=== PATIENT | female | born 1945 | race Caucasian/White ===

== ENCOUNTER 2020-10-04 15:11 | Inpatient (IN) ==
[2020-10-04] MEDS ORDERED: 0.9 % Sodium Chloride 1,000 ML IVC ONE (15:29)
[2020-10-04] MEDS ORDERED: Morphine Sulfate 2 MG/ML SYRINGE IVP ONE (15:56)
[2020-10-04] MEDS ORDERED: Ondansetron 4 MG/2 ML VIAL IVP ONE (15:57)
[2020-10-04 16:09] LABS: BUN/Creatinine Ratio 24 (6-26); Blood Urea Nitrogen 23 mg/dL (8-23); Calcium 9.6 mg/dL (8.6-10.3); Carbon Dioxide 28 mEq/L (23-29); Chloride 100 mEq/L (98-107); Glucose 104 mg/dL (70-105); Osmolality,Calculated 292 (280-300); Potassium 3.9 mEq/L (3.5-5.1); Sodium 139 mEq/L (136-145); Troponin I < 0.03 ng/mL (< 0.04); eGFR For African Americans > 60 (> 60); eGFR For Non-African Americans 57 (> 60)
[2020-10-04 16:16] LABS: Basophils # 0.1 K/mcL (0.0-0.2); Basophils % 0.5 %; Eosinophils # 0.5 K/mcL (0.0-0.6); Eosinophils % 2.7 %; Hematocrit 37.3 % (35.3-44.9); Hemoglobin 11.4 g/dL (11.5-15.4); Immature Granulocytes % 0.8 % (0-4); Lymphocytes # 3.2 K/mcL (0.6-4.6); Lymphocytes % 19.1 %; Mean Corpuscular HGB Conc 30.6 g/dL (31.6-35.5); Mean Corpuscular Volume 94.9 fL (83.0-100.0); Mean Platelet Volume 11.1 fL (9.4-12.4); Monocytes # 1.6 K/mcL (0.0-1.3); Monocytes % 9.5 %; Neutrophils # 11.4 K/mcL (1.6-8.9); Platelet Count 326 K/mcL (140-400); Red Blood Count 3.93 M/mcL (3.82-4.97); Segmented Neutrophils % 67.4 %; White Blood Count 16.9 K/mcL (4.3-11.1)
[2020-10-04] MEDS ORDERED: Morphine Sulfate 2 MG/ML SYRINGE IVP PRN (17:54)
[2020-10-04] MEDS ORDERED: Perflutren Lipid Microsphere 1.3 ML in 0.9 % Sodium Chloride 8.7 ML IVP PRN (18:24)
[2020-10-04] MEDS ORDERED: tiZANidine 4 MG TABLET PO ONE (19:13)
[2020-10-04] MEDS ORDERED: Melatonin 3 MG TABLET PO PRN (19:47)
[2020-10-04] MEDS ORDERED: Naloxone 0.4 MG/ML INJ IVP PRN (19:47)
[2020-10-04] MEDS ORDERED: Prochlorperazine 10 MG/2 ML VIAL IVP PRN (19:55)
[2020-10-04] MEDS ORDERED: 0.9 % Sodium Chloride 1,000 ML IVC SCH (20:00)
[2020-10-04] MEDS ORDERED: Acetaminophen IV 1,000 MG/100 ML BAG IVPB ONE (20:22)
[2020-10-04] MEDS: *HR* HYDROmorphone (PF) 1 MG/ML SYRINGE IVP PRN (21:01)
[2020-10-04] MEDS: Nicotine 14 MG PATCH.TD24 TD SCH (21:14)
[2020-10-04] MEDS: Famotidine 20 MG/2 ML VIAL IVP SCH (21:14)
[2020-10-04] MEDS: Latanoprost 2.5 ML BOTTLE RIGHT EYE SCH (21:15)
[2020-10-05] MEDS: *HR* HYDROmorphone (PF) 1 MG/ML SYRINGE IVP PRN (05:22)
[2020-10-05 05:23] LABS: Hematocrit 32.9 % (35.3-44.9); Mean Corpuscular HGB Conc 30.4 g/dL (31.6-35.5); Mean Corpuscular Hemoglobin 29.1 pg (28.0-33.3); Mean Corpuscular Volume 95.6 fL (83.0-100.0); Mean Platelet Volume 11.2 fL (9.4-12.4); Platelet Count 276 K/mcL (140-400); Red Blood Count 3.44 M/mcL (3.82-4.97); Red Cell Distribution Width 14.2 % (11.5-14.5); White Blood Count 12.5 K/mcL (4.3-11.1)
[2020-10-05] MEDS: Famotidine 20 MG/2 ML VIAL IVP SCH ×2 (05:24→18:00)
[2020-10-05 05:30] LABS: INR 1.3; Prothrombin Time 14.7 Seconds (9.4-12.1)
[2020-10-05 06:11] LABS: % Iron Saturation 14 % (15-50); BUN/Creatinine Ratio 23 (6-26); Blood Urea Nitrogen 18 mg/dL (8-23); Calcium 8.5 mg/dL (8.6-10.3); Carbon Dioxide 26 mEq/L (23-29); Chloride 104 mEq/L (98-107); Chol/HDL Ratio 2.5 (0-4.9); Cholesterol 78 mg/dL (< 200); Glucose 86 mg/dL (70-105); HDL Cholesterol 31 mg/dL (40-59); Iron 31 mcg/dL (50-170); LDL Cholesterol,Calculated 25 mg/dL (< 100); Magnesium 1.9 mg/dL (1.6-2.6); Osmolality,Calculated 291 (280-300); Potassium 3.7 mEq/L (3.5-5.1); Sodium 140 mEq/L (136-145); Transferrin 159 mg/dL (203-362); Triglycerides 111 mg/dL (< 150); eGFR For African Americans > 60 (> 60); eGFR For Non-African Americans > 60 (> 60)
[2020-10-05 06:14] LABS: Ferritin 509 ng/mL (10-120)
[2020-10-05] MEDS: Nicotine 14 MG PATCH.TD24 TD SCH (10:24)
[2020-10-05] MEDS ORDERED: *HR* Propofol 200 MG/20 ML VIAL IVP ONE (11:45)
[2020-10-05] MEDS ORDERED: Dexamethasone 4 MG/ML VIAL ONE (11:45)
[2020-10-05] MEDS ORDERED: Lidocaine HCL 4 ML Topical Solution (Laryng-O-Jet Kit Sterile Pak) TP ONE (11:45)
[2020-10-05] MEDS ORDERED: *HR* FentaNYL (PF) 100 MCG/2 ML VIAL ONE (11:45)
[2020-10-05] MEDS ORDERED: Lidocaine -MPF 2% 2 ML VIAL ONE (11:45)
[2020-10-05] MEDS ORDERED: Ondansetron 4 MG/2 ML VIAL ONE (11:45)
[2020-10-05 12:01] LABS: Bacteria,Urine Few per hpf (None-Few); Bilirubin,Urine Negative (Negative); Blood,Urine Negative (Negative); Clarity,Urine Clear (Clear); Color,Urine Light-Yellow (Yellow); Glucose,Urine (UA) Normal (Normal); Hyaline Casts,Urine Few per lpf (None Seen); Ketones,Urine Negative (Negative); Leukocyte Esterase,Urine Moderate (Negative); Mucus,Urine Few per lpf (None-Few); Nitrite,Urine Positive (Negative); Protein,Urine Trace mg/dL (Neg-Trace); RBC,Urine 0-3 per hpf (0-3); Specific Gravity,Urine 1.017 (1.010-1.025); Squamous Epithelial Cell,Urine Few per hpf (None-Few); Urobilinogen,Urine Normal (Normal); WBC,Urine 30-50 per hpf (0-3)
[2020-10-05 12:09] LABS: Estimated Average Glucose 114 mg/dl; Hemoglobin A1C 5.6 %
[2020-10-05] MEDS ORDERED: CeFAZolin Syr 2,000MG/20 ML 2,000 MG/20 ML SYRINGE IVPB ONE (12:14)
[2020-10-05] MEDS ORDERED: TOTAL JOINT MIXTURE (100ML) INTRAART ONE (12:30)
[2020-10-05] MEDS ORDERED: Povidone-Iodine 45 ML, Sodium Chloride IRRigation 1,000 ML IR ONE (12:30)
[2020-10-05] MEDS ORDERED: EPHEDrine 50 MG/ML VIAL ONE (13:04)
[2020-10-05] MEDS ORDERED: *HR* Rocuronium Bromide 50 MG/5 ML VIAL ONE ×2 (13:57→14:00)
[2020-10-05] MEDS ORDERED: Tranexamic Acid 1,000 MG/10 ML VIAL ONE (14:01)
[2020-10-05] MEDS ORDERED: *HR* HYDROMORPHONE 2 MG/ML VIAL ONE (15:59)
[2020-10-05 19:10] LABS: Hematocrit 32.5 % (35.3-44.9); Hemoglobin 10.1 g/dL (11.5-15.4)
[2020-10-05] MEDS: CeFAZolin 2 GM/120 ML BAG IVPB SCH (21:15)
[2020-10-05] MEDS: Latanoprost 2.5 ML BOTTLE RIGHT EYE SCH (21:17)
[2020-10-06] MEDS: *HR* HYDROmorphone (PF) 1 MG/ML SYRINGE IVP PRN (01:10)
[2020-10-06 04:41] LABS: Basophils % 0.1 %; Hematocrit 30.7 % (35.3-44.9); Hemoglobin 9.5 g/dL (11.5-15.4); Immature Granulocytes % 0.6 % (0-4); Lymphocytes # 1.2 K/mcL (0.6-4.6); Lymphocytes % 6.9 %; Mean Corpuscular HGB Conc 30.9 g/dL (31.6-35.5); Mean Corpuscular Hemoglobin 29.6 pg (28.0-33.3); Mean Corpuscular Volume 95.6 fL (83.0-100.0); Monocytes # 1.4 K/mcL (0.0-1.3); Monocytes % 7.7 %; Neutrophils # 15.1 K/mcL (1.6-8.9); Platelet Count 264 K/mcL (140-400); Red Blood Count 3.21 M/mcL (3.82-4.97); Segmented Neutrophils % 84.7 %; White Blood Count 17.8 K/mcL (4.3-11.1)
[2020-10-06 05:00] LABS: BUN/Creatinine Ratio 24 (6-26); Blood Urea Nitrogen 22 mg/dL (8-23); Calcium 8.7 mg/dL (8.6-10.3); Carbon Dioxide 29 mEq/L (23-29); Chloride 102 mEq/L (98-107); Glucose 122 mg/dL (70-105); Osmolality,Calculated 293 (280-300); Potassium 3.9 mEq/L (3.5-5.1); Sodium 139 mEq/L (136-145); eGFR For African Americans > 60 (> 60); eGFR For Non-African Americans 60 (> 60)
[2020-10-06] MEDS: CeFAZolin 2 GM/120 ML BAG IVPB SCH (05:28)
[2020-10-06] MEDS: Famotidine 20 MG/2 ML VIAL IVP SCH (05:29)
[2020-10-06] MEDS: Nicotine 14 MG PATCH.TD24 TD SCH (10:29)
[2020-10-06] MEDS: cefTRIAXone 1,000 MG in Water for inj. (sterile) 10 ML IVP SCH (12:42)
[2020-10-06] MEDS: Latanoprost 2.5 ML BOTTLE RIGHT EYE SCH (20:13)
[2020-10-06] MEDS ORDERED: QUEtiapine Fumarate 25 MG TABLET PO SCH (21:00)
[2020-10-07 01:25] LABS: Basophils % 0.3 %; Eosinophils % 0.1 %; Hematocrit 25.5 % (35.3-44.9); Immature Granulocytes % 0.6 % (0-4); Lymphocytes # 2.6 K/mcL (0.6-4.6); Lymphocytes % 17.5 %; Mean Corpuscular Hemoglobin 29.4 pg (28.0-33.3); Mean Corpuscular Volume 94.8 fL (83.0-100.0); Mean Platelet Volume 11.3 fL (9.4-12.4); Monocytes # 1.4 K/mcL (0.0-1.3); Monocytes % 9.5 %; Neutrophils # 10.5 K/mcL (1.6-8.9); Platelet Count 213 K/mcL (140-400); Red Blood Count 2.69 M/mcL (3.82-4.97); Red Cell Distribution Width 14.3 % (11.5-14.5); White Blood Count 14.6 K/mcL (4.3-11.1)
[2020-10-07 01:27] LABS: Hemoglobin 7.9 g/dL (11.5-15.4)
[2020-10-07 01:48] LABS: BUN/Creatinine Ratio 34 (6-26); Blood Urea Nitrogen 28 mg/dL (8-23); Calcium 8.5 mg/dL (8.6-10.3); Carbon Dioxide 27 mEq/L (23-29); Chloride 102 mEq/L (98-107); Glucose 97 mg/dL (70-105); Osmolality,Calculated 289 (280-300); Potassium 3.5 mEq/L (3.5-5.1); Sodium 137 mEq/L (136-145); eGFR For African Americans > 60 (> 60); eGFR For Non-African Americans > 60 (> 60)
[2020-10-07 01:50] LABS: Magnesium 2.1 mg/dL (1.6-2.6); Phosphorous 2.2 mg/dL (2.7-4.5)
[2020-10-07] MEDS ORDERED: Famotidine 20 MG/2 ML VIAL IVP SCH (06:30)
[2020-10-07] MEDS: Nicotine 14 MG PATCH.TD24 TD SCH (08:16)
[2020-10-07] MEDS: cefTRIAXone 1,000 MG in Water for inj. (sterile) 10 ML IVP SCH (08:18)
[2020-10-07 15:23] VITALS: BP 121/65
[2020-10-07 16:08] LABS: Adenovirus Not Detected (Not Detect); Coronavirus 229E Not Detected (Not Detect); Coronavirus HKU1 Not Detected (Not Detect); Coronavirus NL63 Not Detected (Not Detect); Coronavirus OC43 Not Detected (Not Detect); Human Metapneumovirus Not Detected (Not Detect); Human Rhinovirus/Enterovirus Not Detected (Not Detect); Influenza A Subtype 2009 H1 Not Detected (Not Detect); Influenza B Not Detected (Not Detect); Parainfluenza Virus 1 Not Detected (Not Detect); Parainfluenza Virus 2 Not Detected (Not Detect); Parainfluenza Virus 3 Not Detected (Not Detect); SARS-CoV-2 Not Detected (Not Detect)
[2020-10-07 16:09] LABS: Bordetella Pertussis Not Detected (Not Detect); Chlamydophila pneumoniae Not Detected (Not Detect); Mycoplasma pneumoniae Not Detected (Not Detect); Parainfluenza Virus 4 Not Detected (Not Detect); Respiratory Syncytial Virus Not Detected (Not Detect)
== END 2020-10-07 17:00 | DRG 480 ==
LOC: 3NENU 15:11 → EMEROOARM 15:11 → 3NENU 19:00 → 2NNU 19:00 → 3NENU 19:30 → SUATTDRO 20:05
PROVIDERS: ADMIT Internal Medicine; ATTEND Internal Medicine

== ENCOUNTER 2020-10-13 13:44 | Inpatient (IN) ==
[2020-10-13] MEDS ORDERED: Acetaminophen 325 MG TABLET PO PRN (17:05)
[2020-10-13] MEDS ORDERED: Melatonin 3 MG TABLET PO PRN (17:05)
[2020-10-13] MEDS ORDERED: Naloxone 0.4 MG/ML INJ IVP PRN (17:05)
[2020-10-13] MEDS ORDERED: Ondansetron 4 MG/2 ML VIAL IVP PRN (17:05)
[2020-10-13] MEDS ORDERED: Isovue-370 500 ML BOTTLE IVP ONE (17:32)
[2020-10-13] MEDS ORDERED: 0.9 % Sodium Chloride 1,000 ML IVC SCH (18:00)
[2020-10-13] MEDS: Cyanocobalamin (B-12) 1,000 MCG/ML VIAL SQ SCH (18:06)
[2020-10-13] MEDS ORDERED: Haloperidol Lactate 5 MG/ML VIAL IVP PRN (18:20)
[2020-10-13 18:21] LABS: INR 1.6; Prothrombin Time 17.8 Seconds (9.4-12.1)
[2020-10-13 18:23] LABS: Activated Partial Thrombo Time 26.9 Seconds (26.0-36.0)
[2020-10-13 18:33] LABS: Albumin 2.8 g/dL (3.5-5.7); Bilirubin,Direct 0.3 mg/dL (0.0-0.2); Bilirubin,Indirect 0.4 mg/dL (0.0-1.0); Bilirubin,Total 0.7 mg/dL (0.3-1.0); Globulin 2.9 g/dL (2.4-3.5); Total Protein 5.7 g/dL (6.4-8.9)
[2020-10-13] MEDS: Thiamine (B-1) 100 MG in 0.9 % Sodium Chloride 50 ML IVPB SCH (19:10)
[2020-10-13] MEDS: 0.9 % Sodium Chloride 1,000 ML IVC SCH ×4 (19:10→22:42)
[2020-10-13 20:57] LABS: ABG Base Excess 0 mEq/L (-2 to 3); ABG HCO3 25 mEq/L (21-27); ABG Oxygen Saturation 92 % (95-98); ABG PCO2 39 mmHg (35-45); ABG PO2 64 mmHg (85-104); ABG TCO2 26 mEq/L (20-26)
[2020-10-14 03:11] LABS: Basophils % 0.2 %; Eosinophils % 0.2 %; Hematocrit 27.1 % (35.3-44.9); Hemoglobin 8.5 g/dL (11.5-15.4); Immature Granulocytes % 1.2 % (0-4); Lymphocytes % 15.5 %; Mean Corpuscular HGB Conc 31.4 g/dL (31.6-35.5); Mean Corpuscular Hemoglobin 29.8 pg (28.0-33.3); Mean Corpuscular Volume 95.1 fL (83.0-100.0); Mean Platelet Volume 10.4 fL (9.4-12.4); Monocytes # 1.9 K/mcL (0.0-1.3); Monocytes % 9.9 %; Neutrophils # 14.2 K/mcL (1.6-8.9); Nucleated Red Blood Cells 0.1 /100 WBC (0); Platelet Count 379 K/mcL (140-400); Red Blood Count 2.85 M/mcL (3.82-4.97); Red Cell Distribution Width 15.6 % (11.5-14.5); White Blood Count 19.5 K/mcL (4.3-11.1)
[2020-10-14 03:29] LABS: BUN/Creatinine Ratio 21 (6-26); Blood Urea Nitrogen 16 mg/dL (8-23); Carbon Dioxide 23 mEq/L (23-29); Chloride 107 mEq/L (98-107); Glucose 72 mg/dL (70-105); Magnesium 1.7 mg/dL (1.6-2.6); Osmolality,Calculated 290 (280-300); Phosphorous 3.1 mg/dL (2.7-4.5); Potassium 3.6 mEq/L (3.5-5.1); Sodium 140 mEq/L (136-145); eGFR For African Americans > 60 (> 60); eGFR For Non-African Americans > 60 (> 60)
[2020-10-14] MEDS ORDERED: *HR* FentaNYL (PF) 100 MCG/2 ML VIAL ONE (08:34)
[2020-10-14] MEDS ORDERED: *HR* Propofol 200 MG/20 ML VIAL IVP ONE (08:35)
[2020-10-14] MEDS ORDERED: Dexamethasone 4 MG/ML VIAL ONE (08:39)
[2020-10-14] MEDS ORDERED: Ondansetron 4 MG/2 ML VIAL ONE (08:39)
[2020-10-14] MEDS ORDERED: *HR* Rocuronium Bromide 50 MG/5 ML VIAL ONE (08:39)
[2020-10-14] MEDS ORDERED: Lidocaine -MPF 2% 2 ML VIAL ONE (08:39)
[2020-10-14] MEDS ORDERED: Lidocaine -MPF 4% 5 ML AMPUL ONE (08:39)
[2020-10-14] MEDS ORDERED: levoFLOXacin 750 MG/150 ML 750 MG/150 ML BAG IVPB SCH (09:00)
[2020-10-14] MEDS ORDERED: *HR* EPINEPHrine 1 MG/10 ML SYRINGE INTRATRACH ONE (09:45)
[2020-10-14] MEDS: Cyanocobalamin (B-12) 1,000 MCG/ML VIAL SQ SCH (10:48)
[2020-10-14] MEDS: 0.9 % Sodium Chloride 1,000 ML IVC SCH (11:09)
[2020-10-14] MEDS: Thiamine (B-1) 100 MG in 0.9 % Sodium Chloride 50 ML IVPB SCH (11:10)
[2020-10-14 14:54] LABS: Source of Body Fluid LEFT LOWER LOBE LUNG
[2020-10-14 16:20] LABS: Appearance of Body Fluid Slightly Hazy (Clear)
[2020-10-14 16:21] LABS: Volume of Body Fluid 28 mL
[2020-10-14 17:55] LABS: Creatine Kinase 61 Units/L (30-223); Lactate Dehydrogenase 193 Units/L (140-271)
[2020-10-14 20:41] LABS: Bacteria,Urine Few per hpf (None-Few); Bilirubin,Urine Negative (Negative); Blood,Urine Trace (Negative); Clarity,Urine Clear (Clear); Color,Urine Light-Yellow (Yellow); Glucose,Urine (UA) Normal (Normal); Hyaline Casts,Urine Few per lpf (None Seen); Ketones,Urine 20 mg/dL (Negative); Leukocyte Esterase,Urine Negative (Negative); Mucus,Urine Few per lpf (None-Few); Nitrite,Urine Negative (Negative); PH,Urine 5.5 pH Units (5.0-8.0); Protein,Urine Trace mg/dL (Neg-Trace); RBC,Urine 0-3 per hpf (0-3); Urobilinogen,Urine Normal (Normal); WBC,Urine 0-3 per hpf (0-3)
[2020-10-14] MEDS: Latanoprost 2.5 ML BOTTLE RIGHT EYE SCH (20:54)
[2020-10-15] MEDS: 0.9 % Sodium Chloride 1,000 ML IVC SCH ×3 (01:17→18:48)
[2020-10-15 04:39] LABS: Basophils % 0.1 %; Hemoglobin 7.6 g/dL (11.5-15.4); Immature Granulocytes % 1.6 % (0-4); Lymphocytes # 1.5 K/mcL (0.6-4.6); Lymphocytes % 8.5 %; Mean Corpuscular HGB Conc 30.4 g/dL (31.6-35.5); Mean Corpuscular Hemoglobin 30.4 pg (28.0-33.3); Mean Platelet Volume 10.6 fL (9.4-12.4); Monocytes # 1.4 K/mcL (0.0-1.3); Monocytes % 7.6 %; Neutrophils # 14.7 K/mcL (1.6-8.9); Platelet Count 331 K/mcL (140-400); Red Cell Distribution Width 16.1 % (11.5-14.5); Segmented Neutrophils % 82.2 %; White Blood Count 17.8 K/mcL (4.3-11.1)
[2020-10-15 04:59] LABS: BUN/Creatinine Ratio 24 (6-26); Blood Urea Nitrogen 18 mg/dL (8-23); Carbon Dioxide 25 mEq/L (23-29); Chloride 108 mEq/L (98-107); Glucose 80 mg/dL (70-105); Osmolality,Calculated 293 (280-300); Potassium 3.8 mEq/L (3.5-5.1); Sodium 141 mEq/L (136-145); eGFR For African Americans > 60 (> 60); eGFR For Non-African Americans > 60 (> 60)
[2020-10-15] MEDS ORDERED: Gadolinium Contrast Agent (WT Based) IV PRN (08:09)
[2020-10-15] MEDS: Cyanocobalamin (B-12) 1,000 MCG/ML VIAL SQ SCH (08:53)
[2020-10-15] MEDS: Thiamine (B-1) 100 MG in 0.9 % Sodium Chloride 50 ML IVPB SCH (11:56)
[2020-10-15] MEDS: cefTRIAXone 1,000 MG in Water for inj. (sterile) 10 ML IVP SCH (12:03)
[2020-10-15] MEDS: dexAMETHasone 4 MG TABLET PO SCH ×2 (16:07→19:34)
[2020-10-15] MEDS: Latanoprost 2.5 ML BOTTLE RIGHT EYE SCH (19:35)
[2020-10-16 01:56] LABS: Basophils % 0.1 %; Hemoglobin 7.7 g/dL (11.5-15.4); Immature Granulocytes % 1.1 % (0-4); Lymphocytes % 6.2 %; Mean Corpuscular HGB Conc 30.8 g/dL (31.6-35.5); Mean Corpuscular Hemoglobin 30.4 pg (28.0-33.3); Mean Corpuscular Volume 98.8 fL (83.0-100.0); Mean Platelet Volume 10.9 fL (9.4-12.4); Monocytes # 0.4 K/mcL (0.0-1.3); Monocytes % 2.6 %; Neutrophils # 13.8 K/mcL (1.6-8.9); Platelet Count 317 K/mcL (140-400); Red Blood Count 2.53 M/mcL (3.82-4.97); Red Cell Distribution Width 16.3 % (11.5-14.5); White Blood Count 15.4 K/mcL (4.3-11.1)
[2020-10-16 02:15] LABS: BUN/Creatinine Ratio 27 (6-26); Blood Urea Nitrogen 18 mg/dL (8-23); Carbon Dioxide 26 mEq/L (23-29); Chloride 107 mEq/L (98-107); Glucose 108 mg/dL (70-105); Osmolality,Calculated 292 (280-300); Potassium 3.8 mEq/L (3.5-5.1); Sodium 140 mEq/L (136-145); eGFR For African Americans > 60 (> 60); eGFR For Non-African Americans > 60 (> 60)
[2020-10-16] MEDS: 0.9 % Sodium Chloride 1,000 ML IVC SCH ×2 (02:38→18:04)
[2020-10-16] MEDS: cefTRIAXone 1,000 MG in Water for inj. (sterile) 10 ML IVP SCH (09:58)
[2020-10-16] MEDS: dexAMETHasone 4 MG TABLET PO SCH ×2 (10:02→16:30)
[2020-10-16] MEDS: Cyanocobalamin (B-12) 1,000 MCG/ML VIAL SQ SCH (10:12)
[2020-10-16] MEDS: Thiamine (B-1) 100 MG in 0.9 % Sodium Chloride 50 ML IVPB SCH (10:17)
[2020-10-16 16:16] VITALS: BP 117/64
== END 2020-10-16 19:52 | disposition short-term general hospital (02) | DRG 871 ==
LOC: 3BNU → SUATTDRO 16:48 → 2ANU 10-14 18:41
PROVIDERS: ADMIT Family Medicine; ATTEND Nurse Practitioner